=== PATIENT | female | born 2000 | race Asian ===

== ENCOUNTER 2025-07-24 08:48 | Outpatient (AMB) | payer MEDICAID, SELFPAY ==
[2025-07-24 09:04] VITALS: BP 94/60; PULSE 86; RESP 18; TEMP 36.5; O2SAT 97; BMI 25.5
--- NOTE | 2025-07-24 09:04 | OBCLNT_ITS ---
Vital Signs 07/24/25 09:04 Height 1.47 m Height Method Stated Weight 55.395 kg Weight Measurement Method Standing Scale BMI 25.5 BP 94/60 Blood Pressure Source Automatic Cuff Blood Pressure Location Right Upper Arm Position Sitting Respiration 18 Pulse 86 Pulse Source Monitor Temp 97.7 F Temp Source Temporal Artery Scan Pulse Oximetry (%) 97 Oxygen Delivery Method Room Air Allergies/Home Meds Allergies & Medications Allergies No Known Allergies Allergy (Verified 07/27/25 00:09) Medication Reconciliation vits no.126-ferrous fum 28 mg iron-folic acid 800 mcg tablet (Classic ) 28 tab PO QDAY 07/24/25 [History Confirmed 07/27/25] ferrous sulfate 325 mg (65 mg iron) tablet (FeroSul) 325 mg PO BID 07/27/25 [History Confirmed 07/27/25] Intake Visit Data Collection New Patient or Established: New Patient (never been to [facility]) Reason for Visit:: OBI TRANSFER Seen by Clinical Staff ONLY (RN/MA): No Roller Leveler Operator Required: No Do You Feel Safe at Home: Yes Authorities Contacted: N/A PCP or OBGYN visit in last 3 months: No Hx Now: Yes Are you currently on any form of Control: No Last menstrual period: 12/13/24 Pain Present Currently: No Pain Scale Used: Carr-Peña/Numerical Pain scale:: 0 Smoking Status Smoking Status: Never smoker Immunizations Flu Vaccine in the Last 12 Months: No Flu Vaccine Exclusion Criteria: No Exclusion Criteria Questionnaires Covid-19 Vaccine Questionnaire Has patient been vacinated for Covid-19 Have you been vacinated for Covid-19: No PHQ-9 PHQ-2 Over the last 2 weeks, how often have you been bothered by any of the following problems? 1. Little interest or pleasure in doing things: not at all 2. Feeling down, depressed, or hopeless: not at all Total score: 0 PHQ-9 3. Trouble falling or staying asleep, or sleeping too much: Not at all 4. Feeling tired or having little energy: Not at all 5. Poor appetite or overeating: Not at all 6. Feeling bad about yourself - or that you are a failure or have let yourself or your family down: Not at all 7. Trouble concentrating on things, such as reading the newspaper or watching television: Not at all 8. Moving or speaking so slowly that other people could have noticed? - Or the opposite - being so fidgety or restless that you have been moving around a lot more than usual: not at all 9. Thoughts that you would be better off or of hurting yourself in some way: Not at all Total score: 0 If you checked off any problems, how difficult have these problems made it for you to do your work, take care of things at home, or get along with other people?: not difficult at all Source: Developed by Drs. Rosales Baig, Roxie Neri, Chris Powell and colleagues, with an educational joy from [employer]. Depression screen completed yes Social History Living Situation History Marital Status: Life Partner Lives With: Family Housing: House Tobacco History Smoking Status: Never smoker Second Hand Smoke Exposure: No Alcohol History Alcohol Intake: Never Domestic Abuse History Do You Feel Safe at Home: Yes History of Present Illness HPI Narrative Transfer of care for with growth restriction Patient is a 24-year-old at 31 weeks and 6 days gestation, transferring care from [facility] due to growth restriction. Her baby was found to have intrauterine growth restriction at the 7th percentile, weighing 1290 grams (2 pounds 14 ounces) on her last maternal ultrasound from July 20, 2025. The patient is of short stature at 4 feet 10 inches. She has been followed by [facility] for the growth restriction and has a follow-up appointment scheduled for this where Doppler studies will be performed to assess blood flow from the placenta to the baby. This is her first and she is expecting a girl. She reports taking her vitamins as prescribed. Obstetric History: - GPAL: G1 T0 L0 - Current : Gestational age 31 weeks and 6 days, estimated due date September 19, 2024, first , gender female Medications: - vitamins Diagnostic Test Results and Labs: - Maternal ultrasound (07-20-2025): growth restriction at 7th percentile, estimated weight 1290 grams (2 pounds 14 ounces) OB Initial Visit OB Flowsheet OB Flowsheet Initial Weight: Not Recorded Date -?-?-?-?-?-?-?-?-?-?-?-?- EGA Weight BP Alb Glu CTX Pres Fundal ht FHR Mov Dilation Station Effacement Hx Notes Visit Note 07/24/25 -?-?-?-?-?-?-?-?-?-?-?-?- 31w 6d 55.395 kg 94/60 absent unknown 31 145 active - Denisha Buenrostro is a 24-year-old 1 para 0 female at 31 weeks and 6 days gestation transferring care from [facility] for management of growth restriction. - Baby girl has been diagnosed with intr auterine growth restriction (IUGR) at 7th percentile, weighing 1290 grams (2 pounds 14 ounces) per maternal ultrasound from July 20, 2025. - Patient is of short stature at 4 feet 10 inches. - She has been followed by [facility] for the growth restriction. - Patient has upcoming follow-up appoint ment with maternal medicine this for Doppler studies to assess blood flow from placenta to baby. - She reports taking vitamins. - This is her first . - Patient denies any other significant s ymptoms or concerns beyond what is documented in her reports. - Adm inister betamethasone steroid injection today on 4th floor of hospital for lung maturation, with second dose tomorrow - Begin bi-weekly NST and BPP monitoring starting today - Order CMV blood test to be drawn at [facility] on [address] - Return to [facility] in 2 w eeks for follow-up ultrasound with Doppler studies - Continue vitamins - Follow-up appointment scheduled for [facility] at 11 AM Menstrual History Menstrual reliability: definite Flow: heavy Menstrual regularity: regular Monthly: Yes Age at menarche: 14 On control pills at conception: No OB History : 1 # of Living Children: 0 Infection History & Risk Evaluation History of STDs: none Genetic Screening & History Genetic Screening/Teratology Counseling - Includes patient, baby's father, or anyone in either family with: 1. Patient's age 35 years or older as of estimated date of delivery: No 2. Thalassemia (Indonesian, [place] Ca[place] Islander, Mediterranean, or Background); MCV less than 80: No 3. Neural Tube Defect (Meningomyelocele, Spina Bifida, or Anencephaly): No 4. Congenital Heart Defect: No 5. Down Syndrome: No 6. Philip-Sachs (Ashkenazi Yazidi, Cajun, Upper Sorbian Towner): No 7. Mia Disease (Ashkenazi Yazidi): No 8. Familial Dysautonomia (Ashkenazi Yazidi): No 9. Sickle Cell Disease or Trait (): No 10. Hemophilia or other blood disorders: No 11. Muscular Dystrophy: No 12. Cystic Fibrosis: No 13. [place]'s Chorea: No 14. Mental Retardation/Autism: No 15. Other inherited genetic or chromosomal disorder: No 16. Maternal Metabolic Disorder (EG,TYPE 1 Diabetes, PKU): No 17. Patient or baby's father had a child with defects not listed above: No 18. Recurrent loss or a stillbirth: No 19. Medications (including supplements, vitamins, herbs or otc drugs)/illicit/recreational drugs/alcohol since last menstrual period: No 20. Any other: No Infection History Other (see comments) Source: [employer] Exam General General Appearance: alert, in no apparent distress and healthy appearing Head Head exam: atraumatic Neck Neck exam: Present normal inspection and trachea midline Chest Chest inspection: Present normal inspection and symmetric chest wall rise External exam: Present normal external exam; Absent tenderness Neuro Neurological exam: Present oriented X3 Psych Psychiatric exam: Present normal affect and normal mood Office Procedures OBC Clinic LOC & Office Proc's Nursing/Assessment Patient Status: Initial/New Patient OB Clinic Nursing Assessment: Medication Reconciliation, Update PMH in EMR and Vital Signs OB Clinic Coordination of Care: Complex Care and Chronic Disease 1-5, Education Complex Pt/Fam, Consent,records obtained, informed consent, Lab and Imaging orders, Results/Orders obtained and Staff clarify orders Special Needs: Heart tones New Patient Charge New Patient Point Assignment: [id number] New Patient Point Charge: FELT HOOKER Level 4 ([id number]) Assessment & Plan Diagnosis / Problem List (1) IUGR (intrauterine growth restriction): Status: Acute (2) Supervision of high risk , unspecified, third trimester: Status: Acute Plan growth restriction Assessment: growth restriction with estimated weight at 7th percentile (1290 grams, 2 pounds 14 ounces) based on maternal medicine ultrasound from July 12, 2025. Patient is of short stature at 4 feet 10 inches. Maternal medicine has recommended follow-up ultrasound in 2 weeks with Doppler studies to assess blood flow from placenta to baby, which will determine if growth restriction is concerning and requires intervention. Plan: - Biweekly NST and BPP monitoring - Betamethasone steroid injection series (first dose today, second dose tomorrow) to promote lung maturity in case of delivery - CMV blood test to rule out cytomegalovirus infection as cause of growth restr iction - Hospital monitoring on 4th floor today for NST/BPP and first betamethasone injection - Follow-up with maternal medicine on for Doppler studies - Return tomorrow for second betamethasone injection , intrauterine, 31 weeks 6 days Plan: - Follow-up with maternal medicine on August 07 at 11 AM for Doppler studies
== END 2025-07-24 09:40 | disposition home or self-care (01) ==
LOC: HODSOBC 08:48
PROVIDERS: PCP Nurse Practitioner Women's Health; Referring Provider Nurse Practitioner Women's Health; Supervising Provider Obstetrics & Gynecology; Visit Provider Obstetrics & Gynecology
DX: O09.893 Supervision of other high risk pregnancies, third trimester (principal); O36.5930 Maternal care for other known or suspected poor fetal growth, third trimester, not applicable or unspecified; Z3A.31 31 weeks gestation of pregnancy
CPT/HCPCS: 99204; G0463

== ENCOUNTER 2025-07-24 11:29 | Outpatient (CLI) | payer MEDICAID, SELFPAY ==
--- NOTE | 2025-07-24 11:32 | XR_ITS ---
Examination: Biophysical profile, ultrasound Date and time of exam: July 24, 2025, 1211 hours INDICATIONS: Diagnosis intrauterine growth retardation Technique: Multiple transabdominal sonographic images of the pelvis abdomen obtained. Attention is directed to the breathing movement, gross body movement, amniotic fluid volume and tone. Findings: Amniotic fluid index 13.2 cm Total biophysical profile is 8 of 8. breathing movement is 2. Gross body movement is 2. tone is 2. Qualitative amniotic fluid volume is 2 Impression: Biophysical profile is 8 of 8.
[2025-07-24 11:36] VITALS: BP 117/68; PULSE 100
[2025-07-24 12:06] VITALS: BP 99/57; PULSE 92
[2025-07-24] MEDS: BETAMET ACET/BETAMET NA PH (Celestone) 6 MG/ML VIAL 12 MG IM (12:55)
[2025-07-24 13:10] VITALS: BP 117/68; PULSE 100; RESP 100; RESP 18; TEMP 36.9; BMI 25.7
== END 2025-07-24 13:05 | disposition home or self-care (01) ==
LOC: S4S1 11:30 → S4SX 11:30
PROVIDERS: Referring Provider Obstetrics & Gynecology; Visit Provider Obstetrics & Gynecology
DX: Z34.90 Encounter for supervision of normal pregnancy, unspecified, unspecified trimester (principal); Z36.9 Encounter for antenatal screening, unspecified; Z3A.00 Weeks of gestation of pregnancy not specified
CPT/HCPCS: 59025; 76819; 96372; J0702

== ENCOUNTER 2025-07-25 12:51 | Outpatient (CLI) | payer MEDICAID, SELFPAY ==
[2025-07-25] VITALS (11 sets, daily range): BP systolic 98; BP diastolic 61; PULSE 97–125; RESP 18–99; TEMP 36.8; O2SAT 98–100; BMI 25.4
[2025-07-25] MEDS: BETAMET ACET/BETAMET NA PH (Celestone) 6 MG/ML VIAL 12 MG IM (13:40)
== END 2025-07-25 13:58 | disposition home health service (06) ==
LOC: S4S1 12:59 → S4SX 12:59
PROVIDERS: Referring Provider Obstetrics & Gynecology; Visit Provider Obstetrics & Gynecology
DX: Z34.03 Encounter for supervision of normal first pregnancy, third trimester (principal); Z36.9 Encounter for antenatal screening, unspecified; Z3A.32 32 weeks gestation of pregnancy
CPT/HCPCS: 59025; 96372; J0702

== ENCOUNTER 2025-08-06 08:59 | Outpatient (AMB) | payer MEDICAID, SELFPAY ==
--- NOTE | 2025-08-06 09:11 | OBCLNT_ITS ---
Vital Signs 08/06/25 09:12 Height 1.47 m Height Method Stated Weight 55.452 kg Weight Measurement Method Standing Scale BMI 25.7 BP 93/59 L Blood Pressure Source Automatic Cuff Blood Pressure Location Right Upper Arm Position Sitting Respiration 18 Pulse 75 Pulse Source Monitor Temp 97.7 F Temp Source Temporal Artery Scan Pulse Oximetry (%) 97 Oxygen Delivery Method Room Air Allergies/Home Meds Allergies & Medications Allergies No Known Allergies Allergy (Verified 08/06/25 09:12) Medication Reconciliation vits no.126-ferrous fum 28 mg iron-folic acid 800 mcg tablet (Classic ) 28 tab PO QDAY 07/24/25 [History Confirmed 08/06/25] ferrous sulfate 325 mg (65 mg iron) tablet (FeroSul) 325 mg PO BID 07/27/25 [History Confirmed 08/06/25] Immunizations Immunizations Flu Vaccine in the Last 12 Months: No Flu Vaccine Exclusion Criteria: No Exclusion Criteria Care OB Visit Log OB Flowsheet Initial Weight: Not Recorded Date -?-?-?-?-?-?-?-?-?-?-?-?- EGA Weight BP Alb Glu CTX Pres Fundal ht FHR Mov Dilation Station Effacement Hx Notes Visit Note 07/24/25 -?-?-?-?-?-?-?-?-?-?-?-?- 31w 6d 55.395 kg 94/60 absent unknown 31 145 active - Denisha Buernostro is a 24-year-old 1 para 0 female at 31 weeks and 6 days gestation transferring care from [facility] for management of growth restriction. - Baby girl has been diagnosed with intr auterine growth restriction (IUGR) at 7th percentile, weighing 1290 grams (2 pounds 14 ounces) per maternal ultrasound from July 20, 2025. - Patient is of short stature at 4 feet 10 inches. - She has been followed by [facility] for the growth restriction. - Patient has upcoming follow-up appoint ment with maternal medicine this for Doppler studies to assess blood flow from placenta to baby. - She reports taking vitamins. - This is her first . - Patient denies any other significant s ymptoms or concerns beyond what is documented in her reports. - Adm inister betamethasone steroid injection today on 4th floor of hospital for lung maturation, with second dose tomorrow - Begin bi-weekly NST and BPP monitoring starting today - Order CMV blood test to be drawn at [facility] [address] [facility] - Return to [facility] in 2 w eeks for follow-up ultrasound with Doppler studies - Continue vitamins - Follow-up appointment scheduled for [facility] at 11 AM 08/06/25 -?-?-?-?-?-?-?-?-?-?-?-?- 33w 5d 55.452 kg 93/59 absent unknown 34 155 active - Denisha Buenrostro is a 1 para 0 patient at 33 weeks and 5 days gestation with intrauterine growth restriction (IUGR) baby measuring at 7th percentile. - She follows with maternal- medici ne every 2 weeks for IUGR surveillance. - Patient reports baby is moving well. - She denies contractions, cramping, or leaking fluid. - Patient is scheduled for weekly non-st ress tests (NST) as recommended by maternal- medicine. - Weekl y NSTs (non-stress tests) as recommended by maternal- medicine - Continue bi-weekly maternal- medi cine visits for IUGR surveillance - Follow up in clinic in 2 weeks AYANA Calculator Estimated Delivery Date Method Current WG Current Estimate 09/19/25 LMP (Certain) 33w 5d Notes Visit Date: 08/06/25 Last Updated by: Dank Suárez MD Laboratory, Imaging, and Diagnostic Test Results - CMV testing: - Ig.6 (elevated) - IgM: negative - Ultrasound and BPP (07/30): - Gestational age: 32 weeks 2 days - heart rate: 151 bpm - Presentation: cephalic - Amniotic fluid: normal - Umbilical artery Dopplers: normal with forward end-diastolic flow - Biophysical profile (BPP): 03/16 without NST Office Procedures OBC Clinic LOC & Office Proc's Nursing/Assessment Patient Status: Established Patient OB Clinic Nursing Assessment: Medication Reconciliation, Update PMH in EMR and Vital Signs OB Clinic Coordination of Care: Complex Care and Chronic Disease 1-5, Education Complex Pt/Fam, Consent,records obtained, informed consent, Lab and Imaging orders, Results/Orders obtained and Staff clarify orders Special Needs: Heart tones Established Patient Charge Established Patient Point Assignment: 140 Established Patient Point Charge: EP Level 4 (120-155) Assessment & Plan Diagnosis / Problem List (1) IUGR (intrauterine growth restriction): Status: Acute Plan Problem List - Intrauterine growth restriction - Single intrauterine at 33 weeks 5 days - Primigravida Assessment 33-week 5-day primigravida with intrauterine growth restriction (IUGR) at 7th percentile under maternal- medicine surveillance. Recent biophysical profile shows reassuring status with score of 8/8, normal amniotic fluid, normal umbilical artery Dopplers with forward end-diastolic flow, heart rate of 151 bpm, and cephalic presentation. CMV serology reveals elevated IgG at 6.6 with negative IgM, indicating past exposure with immunity and no current active infection. Patient reports good movement with no contractions, cramping, or leaking. Plan - Weekly NSTs (non-stress tests) as recommended by maternal- medicine - Continue bi-weekly maternal- medicine visits for IUGR surveillance - Follow up in clinic in 2 weeks 1. Progress Reviewed gestational age (33 weeks 5 days), growth (7th percentile with IUGR), and heart rate (151 bpm). Planned frequent visits (every 2 weeks for MFM surveillance). 2. Instructed patient to monitor movements and report decreases immediately. 3. Testing Counseled on CMV testing results - IgG elevated at 6.6 (indicating past exposure and immunity), IgM negative (no active infection). Discussed weekly NST monitoring as recommended by [facility]. 4. Preeclampsia Precaution Educated on preeclampsia signs: severe headache, vision changes, right upper quadrant pain, sudden swelling. Advised urgent reporting of symptoms and discussed blood pressure monitoring if high risk. 5. Labor Precautions Reviewed labor signs: regular contractions, pelvic pressure, back pain, bleeding, or fluid leakage. Instructed to seek immediate care for these symptoms. 6. Lifestyle and Delivery Preparation Reinforced vitamins, nutrition, and safe activity. Discussed plan, pain management, and . Advised on labor preparation (e.g., hospital bag) and expectations. 7. Psychosocial Support Assessed emotional well-being and offered resources for mental health or parenting support.
[2025-08-06 09:12] VITALS: BP 93/59; PULSE 75; RESP 18; TEMP 36.5; O2SAT 97; BMI 25.7
== END 2025-08-06 09:51 | disposition home or self-care (01) ==
PROVIDERS: Supervising Provider Obstetrics & Gynecology; Visit Provider Obstetrics & Gynecology
DX: O09.893 Supervision of other high risk pregnancies, third trimester (principal); O36.5930 Maternal care for other known or suspected poor fetal growth, third trimester, not applicable or unspecified; Z3A.33 33 weeks gestation of pregnancy
CPT/HCPCS: 99214; G0463